=== PATIENT | female | born 1945 | race Caucasian/White ===

== ENCOUNTER → 2023-01-10 12:39 | Outpatient (CLI) | payer MEDICARE, SELFPAY ==
--- NOTE | ~2023-01-10 | US_ITS ---
EXAMINATION: US thyroid DATE: 01/10/2023 12:57 INDICATION: Iodine deficiency related diffuse goiter. TECHNIQUE: Multiple ultrasound images of the thyroid were obtained. COMPARISON: Ultrasound 11/17/2006 FINDINGS: The right thyroid lobe measures 5.5 x 2.6 x 3.0 cm. The left thyroid lobe measures 5.8 x 2.6 x 2.4 c m. The thyroid demonstrates heterogeneous echogenicity. Vascularity is increased. In the right thyro id lobe, there is a 2.7 cm solid, isoechoic, wider than tall nodule with smooth margin without echoge micah foci (TI-RADS TR3), stable from 11/17/06, likely benign. In the right thyroid lobe, there is a 6 m m solid, isoechoic, wider than tall nodule with smooth margin and peripheral calcifications (TR4). IMPRESSION: 1. Thyroid nodules, likely not clinically significant. No follow-up is needed. 2. 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 Reviewed, dictated and finalized at location E.
== END ==
PROVIDERS: PCP Family Medicine; Visit Provider Physician Assistant
DX: E04.2 Nontoxic multinodular goiter (principal)
CPT/HCPCS: 76536

== ENCOUNTER 2023-08-21 08:24 | Outpatient (CLI) | payer MEDICARE, SELFPAY ==
--- NOTE | ~2023-08-21 | CT_ITS ---
EXAMINATION: CT soft tissue neck w con DATE: 08/21/2023 09:09 INDICATION: Tonsillar mass. Other chronic diseases of tonsils and adenoids. TECHNIQUE: Computed tomography (CT) of the neck was performed with 75 mL Omnipaque-350 intravenous co ntrast. Automated exposure control and iterative reconstruction technique were employed. The dose-duc gth product was 432.99 mGy-cm. COMPARISON: Thyroid ultrasound 01/10/2023 FINDINGS: There are nodules in the thyroid measuring up to 8 mm, likely not clinically significant. T here are no pathologically enlarged lymph nodes. The pharynx and larynx are unremarkable. There is pl aque in the proximal internal carotid arteries is 0% stenosis relative to normal distal artery lumen diameters. The orbits are normal. The paranasal sinuses are clear. The mastoid air cells are normal. There is severe cervical spondylosis. IMPRESSION: 1. Unremarkable pharynx and larynx. Reviewed, dictated and finalized at location A.
[2023-08-21 08:53] LABS: Estimated Glomerular Filt Rate > 60
== END 2023-08-21 08:25 ==
LOC: MICIMG 08:26
PROVIDERS: PCP Family Medicine; Visit Provider Otolaryngology
DX: J35.8 Other chronic diseases of tonsils and adenoids (principal)
CPT/HCPCS: 70491; Q9967